=== PATIENT | female | born 1965 | race Caucasian/White ===

== ENCOUNTER 2020-10-16 06:22 | Emergency (ER) | payer MEDICARE, SELFPAY ==
[2020-10-16 06:23] VITALS: BP 0/0; PULSE 0; RESP 0; O2SAT 0
--- NOTE | 2020-10-16 06:23 | PC.NURSE ---
See Code sheet
--- NOTE | 2020-10-16 06:34 | ED_ITS ---
HPI - General Adult General Chief complaint: Cardiac Arrest/CPR Stated complaint: code blue Time Seen by Provider: 10/16/20 06:33 Source: EMS Mode of arrival: EMS Limitations: altered mental status and clinical condition History of Present Illness HPI narrative: Is a 55-year-old female who presents the emergency department with chief complaint of cardiac arrest. Per EMS the [facility] called after they had heard a thud and found the patient slumped over on the floor. They found her with no pulse and CPR was started by the [facility] staff. Upon EMS arrival patient had been undergoing bystander CPR for at least 10 minutes prior to initiation of ACLS protocols. EMS started ACLS at approximately 5:45 in the morning and arrived at the emergency department at approximately 6:20 AM the patient had been in continual asystole with ACLS protocols being initiated ACLS was continued in the emergency department and the patient was persistently in asystole. Resuscitative efforts were terminated at 0632 after the patient remained in asystole Review of Systems Review of Systems: ROS unobtainable: Yes unobtainable due to endotracheal tube and unobtainable due to medical condition PMFSH Comments History of morbid obesity bipolar disorder prior Covid infection, pneumonia seizure disorder sepsis Social history the patient is currently a resident of a local assisted facility Exam Narrative: Exam Narrative: GENERAL: Ill-appearing unresponsive CPR in progress HEAD: Normocephalic, atraumatic. EYES: Pupils fixed and dilated ENT: Nares clear, no rhinorrhea or epistaxis. Mucous membranes moist. NECK: Supple. CHEST: Clear to auscultation. No spontaneous respiratory effort there is a adv anced airway in place HEART: Absent cardiac activity ABDOMEN: Soft, nontender, nondistended, EXTREMITIES: No signs of overt trauma SKIN: Warm, dry, no rash. NEURO: Unresponsive. PSYCH: Unresponsive Course Course Emergency Course: ACLS protocols were continued without return of spontaneous circulation patient was pronounced at 0632 Procedures Other Procedure Procedure 1: Other Procedure: CPR/ACLS was supervised by me Discharge Plan Discharge Clinical Impression: Cardiac arrest Patient Disposition: Condition: Time of Disposition: 06:32
--- NOTE | 2020-10-16 06:35 | PC.NURSE ---
Attempting to call [facility] for information on pt and pt's family contacts. No answer - [phone]
--- NOTE | 2020-10-16 06:40 | PC.NURSE ---
Attempting to call [facility] at [facility] for information on pt and pt's family contacts. No answer - [phone]
--- NOTE | 2020-10-16 06:50 | PC.NURSE ---
Attempting to call [facility] at [facility] for information on pt and pt's family contacts. No answer - [phone]. Spoke with Oli at [facility] - awaiting next of kin information and home information
--- NOTE | 2020-10-16 06:57 | PC.NURSE ---
Attempting to call [facility] at [facility] for information on pt and pt's family contacts. No answer - [phone]
--- NOTE | 2020-10-16 07:15 | PC.NURSE ---
Attempting to call [facility] at [facility] for information on pt and pt's family contacts. No answer - [phone]
--- NOTE | 2020-10-16 07:17 | PC.NURSE ---
Called Mookie SANDOVAL to check [facility] at [facility] to have someone answer a phone.
--- NOTE | 2020-10-16 07:38 | PC.NURSE ---
Attempting to call [facility] at [facility] for information on pt and pt's family contacts. No answer - [phone]
--- NOTE | 2020-10-16 07:47 | PC.NURSE ---
Attempting to call [facility] at [facility] for information on pt and pt's family contacts. No answer - [phone]
--- NOTE | 2020-10-16 07:59 | PC.NURSE ---
Spoke with Melina at [facility] - gave numbers of family - Adrian [phone], Sonal [phone]
--- NOTE | 2020-10-16 08:09 | PC.NURSE ---
attempted to call Adrian [phone] & Sonal [phone] - no answer, left voicemail to call ER
--- NOTE | 2020-10-16 09:35 | PC.NURSE ---
Brother, Sheldon, of pt called back - states he will call back with home information.
== END 2020-10-16 12:16 | disposition expired ==
PROVIDERS: Emergency Provider Emergency Medicine; PCP Internal Medicine
DX: I46.9 Cardiac arrest, cause unspecified (principal); E66.01 Morbid (severe) obesity due to excess calories; Z68.43 Body mass index [BMI] 50.0-59.9, adult; Z86.16 Personal history of COVID-19; G40.909 Epilepsy, unspecified, not intractable, without status epilepticus
CPT/HCPCS: 36680; 92950; 99285; J0171; J7030